=== PATIENT | male | born 1985 | race Caucasian/White ===

== ENCOUNTER 2025-07-26 18:42 | Emergency (ER) | payer MEDICAID ==
[~2025-07-26] VITALS: Ht 182.9 cm; Wt 81.0 kg
[2025-07-26 18:49] VITALS: PULSE 61; O2SAT 95
[2025-07-26 18:55] VITALS: BP 132/78; RESP 18; TEMP 36.9; O2SAT 99
== END 2025-07-26 19:53 | disposition home or self-care (01) ==
LOC: ER 18:42
DX: S51.852A Open bite of left forearm, initial encounter (principal); Z23 Encounter for immunization; Z20.3 Contact with and (suspected) exposure to rabies; W54.0XXA Bitten by dog, initial encounter; Y93.89 Activity, other specified; Y92.89 Other specified places as the place of occurrence of the external cause; Y99.8 Other external cause status
CPT/HCPCS: 99282